=== PATIENT | female | born 1935 | race Caucasian/White ===

== ENCOUNTER 2017-10-24 09:54 | Inpatient (IN) ==
[2017-10-24] MEDS ORDERED: KETOROLAC 30 MG/1 ML VIAL IV STA (10:11)
[2017-10-24 11:36] LABS: Basophils % 0.6 % (0.0-0.8); Eosinophils # 0.2 10*3/uL (0.0-0.87); Eosinophils % 3.8 % (0.00-10.9); Hematocrit 34.8 VOL% (35.7-47.0); Hemoglobin 11.5 GM/DL (12.0-16.0); Immature Granulocytes % 0.2 %; Immature Granulocytes Absolute 0.01 #; Lymphocytes # 0.7 10*3/uL (1.4-4.0); Lymphocytes % 13.8 % (21.3-54.2); Mean Corpuscular Hemoglobin 29 PG (27-34); Mean Corpuscular Volume 86.6 FL (87-102); Mean Platelet Volume 9.6 FL (9.6-12.0); Monocytes # 0.6 10*3/uL (0.11-0.8); Monocytes % 11.7 % (1.7-12.7); Neutrophils # 3.3 10*3/uL (1.4-7.4); Neutrophils % 69.9 % (38.7-73.9); Platelet Count 140 T/CUMM (130-400); Red Blood Count 4.02 MC/CUMM (3.8-5.5); Red Cell Distribution Width 12.5 % (9.3-17.3); White Blood Count 4.7 T/CUMM (4-12)
[2017-10-24] MEDS ORDERED: KETOROLAC 30 MG/1 ML VIAL ONE (11:37)
[2017-10-24 11:46] LABS: PT Patient Result 10.9 SECS
[2017-10-24 11:56] LABS: Apearance,Urine CLEAR (Clear); Bilirubin,Urine Negative (Negative); Blood, Urine Negative (Negative); Glucose,Urine (UA) Negative (Negative); Ketones,Urine Negative (Negative); Mucus,Urine Occasional /LPF (Occasional); Nitrite,Urine Negative (Negative); Protein,Urine Negative; RBC,Urine <1 /HPF (0-4); Squamous Epithelial Cell,Urine Occasional /HPF (0-10); Urine Color Yellow (Yellow); Urine Specific Gravity 1.009 (1.001-1.035); Urine Urobilinogen < 2.0 EU/DL (0.2-1.0); WBC,Urine <1 /HPF (0-6)
[2017-10-24 12:16] LABS: Alanine Aminotransferase 24 U/L (13-56); Albumin 4.1 G/DL (3.4-5.0); Alkaline Phosphatase 93 U/L (45-117); Aspartate Amino Transferase 21 U/L (0-37); Bilirubin,Total < 0.39 MG/DL (0.2-1.0); Blood Urea Nitrogen 42 MG/DL (7-18); Glucose 100 MG/DL (74-106); Magnesium 2.5 MG/DL (1.8-2.4); Osmolality,Calculated 293.1 MOS/KG (273-304); Potassium 3.4 MMOL/L (3.5-5.1); Sodium 142 MMOL/L (136-145); Total Protein 6.9 G/DL (6.4-8.3); Troponin I Only < 0.015 NG/ML (0.00-0.045)
[2017-10-24] MEDS ORDERED: ONDANSETRON 4 MG/2 ML VIAL IV PRN (13:46)
[2017-10-24] MEDS ORDERED: ACETAMINOPHEN 325 MG TABLET PO PRN (13:46)
[2017-10-24] MEDS: SODIUM CHLOR 0.45% KCL 20 MEQ 20 MEQ/1,000 ML BAG IV SCH (16:04)
[2017-10-25 05:54] LABS: Basophils % 0.8 % (0.0-0.8); Eosinophils # 0.2 10*3/uL (0.0-0.87); Eosinophils % 8.4 % (0.00-10.9); Hematocrit 26.4 VOL% (35.7-47.0); Hemoglobin 8.8 GM/DL (12.0-16.0); Lymphocytes # 0.6 10*3/uL (1.4-4.0); Mean Corpuscular HGB Conc 33.3 GM/DL (32-36); Mean Corpuscular Hemoglobin 29 PG (27-34); Mean Corpuscular Volume 87.1 FL (87-102); Mean Platelet Volume 10.3 FL (9.6-12.0); Monocytes # 0.4 10*3/uL (0.11-0.8); Monocytes % 15.2 % (1.7-12.7); Neutrophils # 1.3 10*3/uL (1.4-7.4); Neutrophils % 51.6 % (38.7-73.9); Platelet Count 141 T/CUMM (130-400); Red Blood Count 3.03 MC/CUMM (3.8-5.5); Red Cell Distribution Width 12.6 % (9.3-17.3); White Blood Count 2.5 T/CUMM (4-12)
[2017-10-25 06:12] LABS: Albumin 3.1 G/DL (3.4-5.0); Bilirubin,Total 0.5 MG/DL (0.2-1.0); Calcium 8.8 MG/DL (8.5-10.1); Osmolality,Calculated 283.5 MOS/KG (273-304); Total Protein 5.1 G/DL (6.4-8.3)
[2017-10-25 06:25] LABS: Giant Platelets Few; Hypochromasia 1+; Ovalocytes Slight; Platelet Estimate Normal
[2017-10-25] MEDS: PANTOPRAZOLE 40 MG TABLET PO SCH (09:18)
[2017-10-25] MEDS ORDERED: TEMAZEPAM 15 MG CAPSULE PO PRN (20:50)
[2017-10-25] MEDS ORDERED: clonazePAM 0.5 MG TABLET PO SCH (21:00)
[2017-10-25] MEDS ORDERED: SIMVASTATIN 40 MG TABLET PO SCH (21:00)
[2017-10-26] MEDS: SODIUM CHLOR 0.45% KCL 20 MEQ 20 MEQ/1,000 ML BAG IV SCH (02:00)
[2017-10-26] MEDS: PANTOPRAZOLE 40 MG TABLET PO SCH (08:46)
[2017-10-26 12:00] VITALS: BP 158/70
== END 2017-10-26 12:10 | disposition home or self-care (01) | DRG 312 ==
LOC: EDBD → EDUNIT# → N.ED 09:54 → N.EDINP 12:51 → SUATTDRO 12:51 → N.EDINP 13:51 → N.2E 14:22
PROVIDERS: ADMIT Hospitalist; ATTEND Internal Medicine

== ENCOUNTER 2018-11-12 13:37 | Inpatient (IN) ==
[2018-11-12] MEDS ORDERED: LEVOFLOXACIN INJ 750 MG in PREMIX 1 EACH IV SCH (16:00)
[2018-11-12 16:17] LABS: Apearance,Urine CLEAR (Clear); Bilirubin,Urine Negative (Negative); Blood, Urine Small mg/dL (Negative); Glucose,Urine (UA) Negative (Negative); Hyaline Casts,Urine 1 /LPF (0-3); Ketones,Urine Negative (Negative); Mucus,Urine Occasional /LPF (Occasional); Nitrite,Urine Negative (Negative); Protein,Urine Negative; RBC,Urine 11 /HPF (0-4); Urine Color Colorless (Yellow); Urine Specific Gravity 1.008 (1.001-1.035); Urine Urobilinogen < 2.0 EU/DL (0.2-1.0); WBC,Urine 1 /HPF (0-6)
[2018-11-12 16:23] LABS: Basophils % 0.5 % (0.0-0.8); Eosinophils # 0.2 10*3/uL (0.0-0.87); Eosinophils % 8.1 % (0.00-10.9); Hematocrit 30.3 VOL% (35.7-47.0); Hemoglobin 9.6 GM/DL (12.0-16.0); Immature Granulocytes % 0.5 %; Immature Granulocytes Absolute 0.01 #; Lymphocytes # 0.4 10*3/uL (1.4-4.0); Lymphocytes % 20.3 % (21.3-54.2); Mean Corpuscular HGB Conc 31.7 GM/DL (32-36); Mean Corpuscular Hemoglobin 28 PG (27-34); Mean Corpuscular Volume 86.8 FL (87-102); Mean Platelet Volume 9.4 FL (9.6-12.0); Monocytes # 0.2 10*3/uL (0.11-0.8); Monocytes % 12.2 % (1.7-12.7); Neutrophils # 1.2 10*3/uL (1.4-7.4); Neutrophils % 58.4 % (38.7-73.9); Platelet Count 136 T/CUMM (130-400); Red Blood Count 3.49 MC/CUMM (3.8-5.5); Red Cell Distribution Width 13.9 % (9.3-17.3)
[2018-11-12 16:27] LABS: Alanine Aminotransferase 18 U/L (13-56); Albumin 2.5 G/DL (3.4-5.0); Alkaline Phosphatase 77 U/L (45-117); Aspartate Amino Transferase 33 U/L (0-37); Bilirubin,Total < 0.39 MG/DL (0.2-1.0); Blood Urea Nitrogen 28 MG/DL (7-18); Calcium 8.7 MG/DL (8.5-10.1); Glucose 94 MG/DL (74-106); Osmolality,Calculated 280.7 MOS/KG (273-304); Potassium 3.7 MMOL/L (3.5-5.1); Sodium 138 MMOL/L (136-145); Total Protein 6.1 G/DL (6.4-8.3)
[2018-11-12 17:09] LABS: Eosinophils 7 % (0-10); Lymphocytes 17 % (20-55); Reactive Lymphocytes Few; Segmented Neutrophils 59 % (50-85); Total Cells Counted 100
[2018-11-12 17:10] LABS: Hypochromasia Slight; Platelet Estimate Adequate
[2018-11-12] MEDS: ALBUTEROL/IPRATROPIUM 3 ML NEB RESP TX SCH (19:03)
[2018-11-12] MEDS: clonazePAM 0.5 MG TABLET PO SCH (20:31)
[2018-11-12] MEDS: TEMAZEPAM 15 MG CAPSULE PO PRN (20:31)
[2018-11-12] MEDS: SIMVASTATIN 40 MG TABLET PO SCH (20:31)
[2018-11-12] MEDS: SODIUM CHLORIDE 0.9% 1,000 ML IV SCH (23:25)
[2018-11-12] MEDS: LORazepam 2 MG/1 ML VIAL IV PRN (23:42)
[2018-11-13] MEDS: ALBUTEROL/IPRATROPIUM 3 ML NEB RESP TX SCH ×4 (00:18→19:19)
[2018-11-13] MEDS: ACETAMINOPHEN 325 MG TABLET PO PRN (03:38)
[2018-11-13] MEDS: ONDANSETRON 4 MG/2 ML VIAL IV PRN (03:40)
[2018-11-13 04:11] LABS: Eosinophils # 0.2 10*3/uL (0.0-0.87); Eosinophils % 10.8 % (0.00-10.9); Hematocrit 27.3 VOL% (35.7-47.0); Hemoglobin 8.5 GM/DL (12.0-16.0); Immature Granulocytes % 0.5 %; Immature Granulocytes Absolute 0.01 #; Lymphocytes # 0.5 10*3/uL (1.4-4.0); Mean Corpuscular HGB Conc 31.1 GM/DL (32-36); Mean Corpuscular Hemoglobin 27 PG (27-34); Mean Corpuscular Volume 86.7 FL (87-102); Mean Platelet Volume 9.8 FL (9.6-12.0); Monocytes # 0.3 10*3/uL (0.11-0.8); Monocytes % 12.7 % (1.7-12.7); Platelet Count 153 T/CUMM (130-400); Red Blood Count 3.15 MC/CUMM (3.8-5.5)
[2018-11-13 04:23] LABS: Calcium 8.6 MG/DL (8.5-10.1); Osmolality,Calculated 281.5 MOS/KG (273-304); Potassium 3.8 MMOL/L (3.5-5.1)
[2018-11-13 04:27] LABS: Albumin 2.5 G/DL (3.4-5.0); Bilirubin,Total 0.5 MG/DL (0.2-1.0); Calcium 8.9 MG/DL (8.5-10.1); Osmolality,Calculated 278.7 MOS/KG (273-304); Potassium 3.8 MMOL/L (3.5-5.1); Risk Ratio 3.35; Total Protein 5.8 G/DL (6.4-8.3); VLDL CHOLESTEROL 24.8 MG/DL
[2018-11-13 07:01] LABS: Hypochromasia Slight; Platelet Estimate Normal
[2018-11-13 07:02] LABS: Ovalocytes 1+
[2018-11-13] MEDS ORDERED: LINACLOTIDE 145 MCG CAPSULE PO SCH (07:30)
[2018-11-13] MEDS: ASPIRIN EC 81 MG TABLET PO SCH (08:17)
[2018-11-13] MEDS: amLODIPine 5 MG TABLET PO SCH (08:17)
[2018-11-13] MEDS: VENLAFAXINE XR 75 MG CAPSULE PO SCH (08:17)
[2018-11-13] MEDS: clonazePAM 0.5 MG TABLET PO SCH ×2 (08:17→21:15)
[2018-11-13] MEDS: PANTOPRAZOLE 40 MG TABLET PO SCH (08:17)
[2018-11-13] MEDS: TOLTERODINE LA 4 MG CAPSULE PO SCH (08:17)
[2018-11-13] MEDS: MEROPENEM 1,000 MG in SODIUM CHLORIDE 0.9% 100 ML IV SCH ×2 (09:55→21:15)
[2018-11-13] MEDS: VANCOMYCIN INJ 1,000 MG in SODIUM CHLORIDE 0.9% 250 ML IV SCH (10:50)
[2018-11-13] MEDS: SODIUM CHLORIDE 0.9% 1,000 ML IV SCH (18:29)
[2018-11-13] MEDS: SIMVASTATIN 40 MG TABLET PO SCH (21:15)
[2018-11-13] MEDS: TEMAZEPAM 15 MG CAPSULE PO PRN (21:15)
[2018-11-14] MEDS: SODIUM CHLORIDE 0.9% 1,000 ML IV SCH ×2 (00:38→07:51)
[2018-11-14] MEDS: ALBUTEROL/IPRATROPIUM 3 ML NEB RESP TX SCH ×5 (00:41→19:15)
[2018-11-14 04:37] LABS: Basophils % 0.4 % (0.0-0.8); Eosinophils # 0.3 10*3/uL (0.0-0.87); Eosinophils % 11.7 % (0.00-10.9); Hematocrit 27.9 VOL% (35.7-47.0); Hemoglobin 8.4 GM/DL (12.0-16.0); Immature Granulocytes % 0.8 %; Immature Granulocytes Absolute 0.02 #; Lymphocytes # 0.5 10*3/uL (1.4-4.0); Lymphocytes % 19.6 % (21.3-54.2); Mean Corpuscular HGB Conc 30.1 GM/DL (32-36); Mean Corpuscular Hemoglobin 27 PG (27-34); Mean Corpuscular Volume 90.3 FL (87-102); Mean Platelet Volume 9.6 FL (9.6-12.0); Monocytes # 0.3 10*3/uL (0.11-0.8); Monocytes % 11.7 % (1.7-12.7); Neutrophils # 1.3 10*3/uL (1.4-7.4); Neutrophils % 55.8 % (38.7-73.9); Platelet Count 154 T/CUMM (130-400); Red Blood Count 3.09 MC/CUMM (3.8-5.5); Red Cell Distribution Width 14.3 % (9.3-17.3); White Blood Count 2.4 T/CUMM (4-12)
[2018-11-14 04:55] LABS: Alanine Aminotransferase 18 U/L (13-56); Albumin 2.4 G/DL (3.4-5.0); Alkaline Phosphatase 71 U/L (45-117); Aspartate Amino Transferase 27 U/L (0-37); Bilirubin,Total < 0.39 MG/DL (0.2-1.0); Blood Urea Nitrogen 28 MG/DL (7-18); Calcium 8.8 MG/DL (8.5-10.1); Glucose 98 MG/DL (74-106); Potassium 4.1 MMOL/L (3.5-5.1); Sodium 143 MMOL/L (136-145); Total Protein 5.6 G/DL (6.4-8.3)
[2018-11-14 06:14] LABS: Band Neutrophils 3 % (0-10); Eosinophils 18 % (0-10); Lymphocytes 14 % (20-55); Myelocytes 1 %; Segmented Neutrophils 53 % (50-85); Total Cells Counted 100
[2018-11-14 06:15] LABS: Anisocytosis 1+; Hypochromasia 1+; Platelet Estimate Adequate
[2018-11-14] MEDS: amLODIPine 5 MG TABLET PO SCH (08:07)
[2018-11-14] MEDS: TOLTERODINE LA 4 MG CAPSULE PO SCH (08:07)
[2018-11-14] MEDS: clonazePAM 0.5 MG TABLET PO SCH ×2 (08:07→20:36)
[2018-11-14] MEDS: VENLAFAXINE XR 75 MG CAPSULE PO SCH (08:07)
[2018-11-14] MEDS: LINACLOTIDE 145 MCG CAPSULE PO SCH (08:07)
[2018-11-14] MEDS: PANTOPRAZOLE 40 MG TABLET PO SCH (08:07)
[2018-11-14] MEDS: LEVOFLOXACIN INJ 750 MG in PREMIX 1 EACH IV SCH (08:08)
[2018-11-14] MEDS: ASPIRIN EC 81 MG TABLET PO SCH (08:08)
[2018-11-14] MEDS ORDERED: hydrOXYzine HCL 25 MG TABLET PO PRN (09:07)
[2018-11-14] MEDS ORDERED: BISACODYL 5 MG TABLET PO ONE (09:10)
[2018-11-14] MEDS: MEROPENEM 1,000 MG in SODIUM CHLORIDE 0.9% 100 ML IV SCH (09:14)
[2018-11-14] MEDS ORDERED: FUROSEMIDE 40 MG/4 ML VIAL IV ONE (09:30)
[2018-11-14] MEDS ORDERED: ENOXAPARIN 80 MG/0.8 ML SYRINGE SUBCUT SCH (09:30)
[2018-11-14] MEDS ORDERED: ALBUTEROL/IPRATROPIUM 3 ML NEB RESP TX PRN (14:31)
[2018-11-14] MEDS: MONTELUKAST 10 MG TABLET PO SCH (14:59)
[2018-11-14] MEDS: methylPREDNISolone SOD SUC 40 MG/1 ML VIAL IV SCH (15:00)
[2018-11-14 16:00] LABS: Free T4 (Free Thyroxine) 0.93 NG/DL (0.76-1.46); Thyroid Stimulating Hormone 2.41 uIU/ml (0.358-3.74)
[2018-11-14] MEDS ORDERED: ENOXAPARIN 30 MG/0.3 ML SYRINGE SUBCUT SCH (17:04)
[2018-11-14] MEDS: metroNIDAZOLE INJ 500 MG in PREMIX 1 EACH IV SCH (17:33)
[2018-11-14] MEDS: SIMVASTATIN 40 MG TABLET PO SCH (20:36)
[2018-11-14] MEDS: FUROSEMIDE 40 MG/4 ML VIAL IV SCH (20:37)
[2018-11-14] MEDS: VANCOMYCIN INJ 1,000 MG in SODIUM CHLORIDE 0.9% 250 ML IV SCH (22:51)
[2018-11-15] MEDS: methylPREDNISolone SOD SUC 40 MG/1 ML VIAL IV SCH ×2 (02:13→15:39)
[2018-11-15] MEDS: metroNIDAZOLE INJ 500 MG in PREMIX 1 EACH IV SCH ×3 (02:15→18:10)
[2018-11-15 04:49] LABS: Hemoglobin 8.4 GM/DL (12.0-16.0); Immature Granulocytes % 1.6 %; Immature Granulocytes Absolute 0.03 #; Lymphocytes # 0.2 10*3/uL (1.4-4.0); Lymphocytes % 8.6 % (21.3-54.2); Mean Corpuscular HGB Conc 31.1 GM/DL (32-36); Mean Corpuscular Hemoglobin 27 PG (27-34); Mean Corpuscular Volume 87.1 FL (87-102); Mean Platelet Volume 9.5 FL (9.6-12.0); Monocytes # 0.1 10*3/uL (0.11-0.8); Monocytes % 2.7 % (1.7-12.7); Neutrophils # 1.6 10*3/uL (1.4-7.4); Neutrophils % 87.1 % (38.7-73.9); Platelet Count 176 T/CUMM (130-400); Red Cell Distribution Width 14.1 % (9.3-17.3); White Blood Count 1.9 T/CUMM (4-12)
[2018-11-15 05:06] LABS: Osmolality,Calculated 288.3 MOS/KG (273-304); Potassium 3.8 MMOL/L (3.5-5.1)
[2018-11-15 05:10] LABS: Albumin 2.5 G/DL (3.4-5.0); Bilirubin,Total 0.6 MG/DL (0.2-1.0); Calcium 9.1 MG/DL (8.5-10.1); Osmolality,Calculated 290.1 MOS/KG (273-304); Potassium 3.8 MMOL/L (3.5-5.1)
[2018-11-15 06:02] LABS: Hypochromasia 1+; Lymphocytes 7 % (20-55); Microcytosis 1+; Ovalocytes Slight; Segmented Neutrophils 91 % (50-85); Total Cells Counted 100
[2018-11-15] MEDS: FUROSEMIDE 40 MG/4 ML VIAL IV SCH ×2 (07:45→15:40)
[2018-11-15] MEDS: LINACLOTIDE 145 MCG CAPSULE PO SCH (07:45)
[2018-11-15] MEDS: ALBUTEROL/IPRATROPIUM 3 ML NEB RESP TX SCH ×4 (08:31→19:11)
[2018-11-15] MEDS: clonazePAM 0.5 MG TABLET PO SCH ×2 (09:40→20:40)
[2018-11-15] MEDS: VENLAFAXINE XR 75 MG CAPSULE PO SCH (09:41)
[2018-11-15] MEDS: ENOXAPARIN 30 MG/0.3 ML SYRINGE SUBCUT SCH (09:41)
[2018-11-15] MEDS: ASPIRIN EC 81 MG TABLET PO SCH (09:41)
[2018-11-15] MEDS: PANTOPRAZOLE 40 MG TABLET PO SCH (09:41)
[2018-11-15] MEDS: MONTELUKAST 10 MG TABLET PO SCH (09:41)
[2018-11-15] MEDS: TOLTERODINE LA 4 MG CAPSULE PO SCH (09:41)
[2018-11-15] MEDS: LORazepam 2 MG/1 ML VIAL IV PRN (16:00)
[2018-11-15] MEDS: SIMVASTATIN 40 MG TABLET PO SCH (20:40)
[2018-11-16] MEDS: methylPREDNISolone SOD SUC 40 MG/1 ML VIAL IV SCH ×2 (02:10→15:26)
[2018-11-16] MEDS: metroNIDAZOLE INJ 500 MG in PREMIX 1 EACH IV SCH ×3 (02:12→17:23)
[2018-11-16] MEDS: ALBUTEROL/IPRATROPIUM 3 ML NEB RESP TX SCH ×4 (06:59→20:18)
[2018-11-16 08:05] LABS: Hemoglobin 8.5 GM/DL (12.0-16.0); Immature Granulocytes % 1.5 %; Immature Granulocytes Absolute 0.07 #; Lymphocytes # 0.3 10*3/uL (1.4-4.0); Lymphocytes % 5.3 % (21.3-54.2); Mean Corpuscular HGB Conc 31.5 GM/DL (32-36); Mean Corpuscular Hemoglobin 27 PG (27-34); Mean Corpuscular Volume 85.4 FL (87-102); Mean Platelet Volume 9.5 FL (9.6-12.0); Monocytes # 0.2 10*3/uL (0.11-0.8); Monocytes % 3.6 % (1.7-12.7); Neutrophils # 4.2 10*3/uL (1.4-7.4); Neutrophils % 89.6 % (38.7-73.9); Platelet Count 235 T/CUMM (130-400); Red Blood Count 3.16 MC/CUMM (3.8-5.5); White Blood Count 4.7 T/CUMM (4-12)
[2018-11-16] MEDS: MONTELUKAST 10 MG TABLET PO SCH (08:21)
[2018-11-16] MEDS: PANTOPRAZOLE 40 MG TABLET PO SCH (08:21)
[2018-11-16] MEDS: LINACLOTIDE 145 MCG CAPSULE PO SCH (08:21)
[2018-11-16] MEDS: clonazePAM 0.5 MG TABLET PO SCH ×2 (08:21→21:47)
[2018-11-16] MEDS: ASPIRIN EC 81 MG TABLET PO SCH (08:21)
[2018-11-16] MEDS: VENLAFAXINE XR 75 MG CAPSULE PO SCH (08:21)
[2018-11-16] MEDS: FUROSEMIDE 40 MG/4 ML VIAL IV SCH (08:22)
[2018-11-16] MEDS: TOLTERODINE LA 4 MG CAPSULE PO SCH (08:22)
[2018-11-16 08:32] LABS: Calcium 9.5 MG/DL (8.5-10.1); Osmolality,Calculated 292.3 MOS/KG (273-304); Potassium 3.6 MMOL/L (3.5-5.1)
[2018-11-16] MEDS ORDERED: MAGNESIUM CITRATE 300 ML BOTTLE PO ONE (09:00)
[2018-11-16] MEDS: LEVOFLOXACIN INJ 750 MG in PREMIX 1 EACH IV SCH (10:03)
[2018-11-16] MEDS: ENOXAPARIN 30 MG/0.3 ML SYRINGE SUBCUT SCH (10:05)
[2018-11-16] MEDS: VANCOMYCIN INJ 1,000 MG in SODIUM CHLORIDE 0.9% 250 ML IV SCH (12:45)
[2018-11-16] MEDS: ONDANSETRON 4 MG/2 ML VIAL IV PRN (17:22)
[2018-11-16] MEDS: SIMVASTATIN 40 MG TABLET PO SCH (21:47)
[2018-11-17] MEDS: metroNIDAZOLE INJ 500 MG in PREMIX 1 EACH IV SCH (02:45)
[2018-11-17] MEDS: methylPREDNISolone SOD SUC 40 MG/1 ML VIAL IV SCH ×2 (02:48→15:50)
[2018-11-17 05:02] LABS: Basophils % 0.2 % (0.0-0.8); Hematocrit 26.2 VOL% (35.7-47.0); Hemoglobin 8.3 GM/DL (12.0-16.0); Immature Granulocytes % 3.1 %; Immature Granulocytes Absolute 0.16 #; Lymphocytes # 0.3 10*3/uL (1.4-4.0); Lymphocytes % 5.5 % (21.3-54.2); Mean Corpuscular HGB Conc 31.7 GM/DL (32-36); Mean Corpuscular Hemoglobin 27 PG (27-34); Mean Corpuscular Volume 85.6 FL (87-102); Mean Platelet Volume 9.7 FL (9.6-12.0); Monocytes # 0.3 10*3/uL (0.11-0.8); Monocytes % 5.9 % (1.7-12.7); Neutrophils # 4.3 10*3/uL (1.4-7.4); Neutrophils % 85.3 % (38.7-73.9); Platelet Count 276 T/CUMM (130-400); Red Blood Count 3.06 MC/CUMM (3.8-5.5); White Blood Count 5.1 T/CUMM (4-12)
[2018-11-17 05:23] LABS: Calcium 9.3 MG/DL (8.5-10.1); Osmolality,Calculated 297.1 MOS/KG (273-304); Potassium 3.5 MMOL/L (3.5-5.1)
[2018-11-17] MEDS: ALBUTEROL/IPRATROPIUM 3 ML NEB RESP TX SCH ×4 (07:22→19:29)
[2018-11-17] MEDS: LINACLOTIDE 145 MCG CAPSULE PO SCH (08:20)
[2018-11-17] MEDS ORDERED: FUROSEMIDE 40 MG/4 ML VIAL IV SCH (09:00)
[2018-11-17] MEDS: ENOXAPARIN 30 MG/0.3 ML SYRINGE SUBCUT SCH (09:34)
[2018-11-17] MEDS: MONTELUKAST 10 MG TABLET PO SCH (09:36)
[2018-11-17] MEDS: VENLAFAXINE XR 75 MG CAPSULE PO SCH (09:36)
[2018-11-17] MEDS: PANTOPRAZOLE 40 MG TABLET PO SCH (09:37)
[2018-11-17] MEDS: ASPIRIN EC 81 MG TABLET PO SCH (09:37)
[2018-11-17] MEDS: TOLTERODINE LA 4 MG CAPSULE PO SCH (09:37)
[2018-11-17] MEDS: clonazePAM 0.5 MG TABLET PO SCH ×2 (09:37→20:37)
[2018-11-17] MEDS: DOCUSATE/SENNA 50-8.6 MG TABLET PO SCH (12:10)
[2018-11-17] MEDS: SIMVASTATIN 40 MG TABLET PO SCH (20:37)
[2018-11-18 05:00] LABS: Hematocrit 27.9 VOL% (35.7-47.0); Hemoglobin 8.7 GM/DL (12.0-16.0); Immature Granulocytes % 6.1 %; Immature Granulocytes Absolute 0.31 #; Lymphocytes # 0.3 10*3/uL (1.4-4.0); Lymphocytes % 5.7 % (21.3-54.2); Mean Corpuscular HGB Conc 31.2 GM/DL (32-36); Mean Corpuscular Hemoglobin 27 PG (27-34); Mean Corpuscular Volume 85.6 FL (87-102); Mean Platelet Volume 9.7 FL (9.6-12.0); Monocytes # 0.5 10*3/uL (0.11-0.8); Monocytes % 8.9 % (1.7-12.7); Neutrophils % 79.3 % (38.7-73.9); Platelet Count 312 T/CUMM (130-400); Red Blood Count 3.26 MC/CUMM (3.8-5.5); Red Cell Distribution Width 14.2 % (9.3-17.3); White Blood Count 5.1 T/CUMM (4-12)
[2018-11-18 05:39] LABS: Calcium 9.5 MG/DL (8.5-10.1); Osmolality,Calculated 296.1 MOS/KG (273-304); Potassium 3.6 MMOL/L (3.5-5.1)
[2018-11-18 05:46] LABS: Lymphocytes 4 % (20-55); Platelet Estimate Normal; Segmented Neutrophils 93 % (50-85); Total Cells Counted 100
[2018-11-18 05:47] LABS: Polychromasia Few
[2018-11-18] MEDS: methylPREDNISolone SOD SUC 40 MG/1 ML VIAL IV SCH ×2 (06:25→17:39)
[2018-11-18] MEDS: ALBUTEROL/IPRATROPIUM 3 ML NEB RESP TX SCH ×4 (07:39→19:40)
[2018-11-18] MEDS: ASPIRIN EC 81 MG TABLET PO SCH (08:11)
[2018-11-18] MEDS: MONTELUKAST 10 MG TABLET PO SCH (08:11)
[2018-11-18] MEDS: LINACLOTIDE 145 MCG CAPSULE PO SCH (08:11)
[2018-11-18] MEDS: TOLTERODINE LA 4 MG CAPSULE PO SCH (08:11)
[2018-11-18] MEDS: VENLAFAXINE XR 75 MG CAPSULE PO SCH (08:11)
[2018-11-18] MEDS: DOCUSATE/SENNA 50-8.6 MG TABLET PO SCH (08:11)
[2018-11-18] MEDS: clonazePAM 0.5 MG TABLET PO SCH ×2 (08:11→21:13)
[2018-11-18] MEDS: PANTOPRAZOLE 40 MG TABLET PO SCH (08:11)
[2018-11-18] MEDS: LEVOFLOXACIN 750 MG TABLET PO SCH (08:12)
[2018-11-18] MEDS: ENOXAPARIN 30 MG/0.3 ML SYRINGE SUBCUT SCH ×2 (08:12→09:52)
[2018-11-18] MEDS ORDERED: TUBERCULIN SKIN TEST 0.1 ML SYRINGE INTRADERM ONE (09:14)
[2018-11-18] MEDS: ACETAMINOPHEN 325 MG TABLET PO PRN (10:48)
[2018-11-18] MEDS: DORNASE ALFA 2.5 MG/2.5 ML VIAL RESP TX SCH (19:48)
[2018-11-18] MEDS: SIMVASTATIN 40 MG TABLET PO SCH (21:13)
[2018-11-18] MEDS: TEMAZEPAM 15 MG CAPSULE PO PRN (21:13)
[2018-11-19] MEDS: methylPREDNISolone SOD SUC 40 MG/1 ML VIAL IV SCH ×2 (04:51→17:54)
[2018-11-19 06:52] LABS: Basophils % 0.2 % (0.0-0.8); Hemoglobin 9.5 GM/DL (12.0-16.0); Immature Granulocytes % 9.2 %; Immature Granulocytes Absolute 0.44 #; Lymphocytes # 0.3 10*3/uL (1.4-4.0); Lymphocytes % 5.9 % (21.3-54.2); Mean Corpuscular HGB Conc 31.7 GM/DL (32-36); Mean Corpuscular Hemoglobin 27 PG (27-34); Mean Platelet Volume 9.5 FL (9.6-12.0); Monocytes # 0.4 10*3/uL (0.11-0.8); Neutrophils # 3.7 10*3/uL (1.4-7.4); Neutrophils % 76.7 % (38.7-73.9); Platelet Count 316 T/CUMM (130-400); Red Blood Count 3.49 MC/CUMM (3.8-5.5); Red Cell Distribution Width 14.3 % (9.3-17.3); White Blood Count 4.8 T/CUMM (4-12)
[2018-11-19 06:59] LABS: Calcium 9.3 MG/DL (8.5-10.1); Osmolality,Calculated 293.4 MOS/KG (273-304); Potassium 4.1 MMOL/L (3.5-5.1)
[2018-11-19] MEDS: ALBUTEROL/IPRATROPIUM 3 ML NEB RESP TX SCH ×4 (07:10→19:42)
[2018-11-19] MEDS: DORNASE ALFA 2.5 MG/2.5 ML VIAL RESP TX SCH ×2 (07:15→19:42)
[2018-11-19 07:29] LABS: Band Neutrophils 3 % (0-10); Lymphocytes 4 % (20-55); Metamyelocytes 1 %; Segmented Neutrophils 84 % (50-85); Total Cells Counted 100
[2018-11-19 07:30] LABS: Anisocytosis 1+; Hypochromasia 2+; Macrocytosis 1+; Platelet Estimate Normal
[2018-11-19] MEDS ORDERED: FUROSEMIDE 40 MG/4 ML VIAL IV ONE (07:40)
[2018-11-19] MEDS: ENOXAPARIN 30 MG/0.3 ML SYRINGE SUBCUT SCH (10:10)
[2018-11-19] MEDS: DOCUSATE/SENNA 50-8.6 MG TABLET PO SCH (10:10)
[2018-11-19] MEDS: clonazePAM 0.5 MG TABLET PO SCH ×2 (10:10→20:26)
[2018-11-19] MEDS: TOLTERODINE LA 4 MG CAPSULE PO SCH (10:11)
[2018-11-19] MEDS: ASPIRIN EC 81 MG TABLET PO SCH (10:11)
[2018-11-19] MEDS: MONTELUKAST 10 MG TABLET PO SCH (10:11)
[2018-11-19] MEDS: PANTOPRAZOLE 40 MG TABLET PO SCH (10:11)
[2018-11-19] MEDS: VENLAFAXINE XR 75 MG CAPSULE PO SCH (10:11)
[2018-11-19] MEDS: LINACLOTIDE 145 MCG CAPSULE PO SCH (10:12)
[2018-11-19] MEDS: SIMVASTATIN 40 MG TABLET PO SCH (20:26)
[2018-11-19] MEDS: ACETAMINOPHEN 325 MG TABLET PO PRN (20:47)
[2018-11-20] MEDS: methylPREDNISolone SOD SUC 40 MG/1 ML VIAL IV SCH ×2 (05:50→16:56)
[2018-11-20] MEDS: ALBUTEROL/IPRATROPIUM 3 ML NEB RESP TX SCH ×4 (08:00→19:25)
[2018-11-20] MEDS: DORNASE ALFA 2.5 MG/2.5 ML VIAL RESP TX SCH ×2 (08:06→19:34)
[2018-11-20] MEDS: ENOXAPARIN 30 MG/0.3 ML SYRINGE SUBCUT SCH (10:26)
[2018-11-20] MEDS: VENLAFAXINE XR 75 MG CAPSULE PO SCH (10:51)
[2018-11-20] MEDS: PANTOPRAZOLE 40 MG TABLET PO SCH (10:51)
[2018-11-20] MEDS: LINACLOTIDE 145 MCG CAPSULE PO SCH (10:51)
[2018-11-20] MEDS: TOLTERODINE LA 4 MG CAPSULE PO SCH (10:51)
[2018-11-20] MEDS: ASPIRIN EC 81 MG TABLET PO SCH (10:51)
[2018-11-20] MEDS: MONTELUKAST 10 MG TABLET PO SCH (10:51)
[2018-11-20] MEDS: DOCUSATE/SENNA 50-8.6 MG TABLET PO SCH (10:51)
[2018-11-20] MEDS: LEVOFLOXACIN 750 MG TABLET PO SCH (10:52)
[2018-11-20] MEDS: SIMVASTATIN 40 MG TABLET PO SCH (20:00)
[2018-11-20] MEDS: ACETAMINOPHEN 325 MG TABLET PO PRN (20:11)
[2018-11-20] MEDS: ONDANSETRON 4 MG/2 ML VIAL IV PRN (23:11)
[2018-11-21] MEDS: ACETAMINOPHEN 325 MG TABLET PO PRN ×2 (00:02→04:51)
[2018-11-21] MEDS: methylPREDNISolone SOD SUC 40 MG/1 ML VIAL IV SCH (04:46)
[2018-11-21 05:34] LABS: Basophils % 0.3 % (0.0-0.8); Eosinophils % 0.1 % (0.00-10.9); Hematocrit 30.5 VOL% (35.7-47.0); Hemoglobin 9.2 GM/DL (12.0-16.0); Immature Granulocytes % 9.1 %; Immature Granulocytes Absolute 0.67 #; Lymphocytes # 0.4 10*3/uL (1.4-4.0); Lymphocytes % 5.3 % (21.3-54.2); Mean Corpuscular HGB Conc 30.2 GM/DL (32-36); Mean Corpuscular Hemoglobin 26 PG (27-34); Mean Corpuscular Volume 87.1 FL (87-102); Mean Platelet Volume 9.6 FL (9.6-12.0); Monocytes # 0.8 10*3/uL (0.11-0.8); Neutrophils # 5.5 10*3/uL (1.4-7.4); Neutrophils % 74.2 % (38.7-73.9); Platelet Count 346 T/CUMM (130-400); Red Cell Distribution Width 14.8 % (9.3-17.3); White Blood Count 7.4 T/CUMM (4-12)
[2018-11-21 05:48] LABS: Albumin 2.8 G/DL (3.4-5.0); Bilirubin,Total 0.6 MG/DL (0.2-1.0); Calcium 9.2 MG/DL (8.5-10.1); Osmolality,Calculated 294.3 MOS/KG (273-304); Potassium 4.2 MMOL/L (3.5-5.1); Total Protein 5.8 G/DL (6.4-8.3)
[2018-11-21 06:19] LABS: Hypochromasia 1+; Lymphocytes 13 % (20-55); Microcytosis 1+; Platelet Estimate Normal; Polychromasia Few; Segmented Neutrophils 81 % (50-85); Total Cells Counted 100
[2018-11-21] MEDS ORDERED: methylPREDNISolone SOD SUC 40 MG/1 ML VIAL IV SCH (08:36)
[2018-11-21] MEDS: DORNASE ALFA 2.5 MG/2.5 ML VIAL RESP TX SCH (09:00)
[2018-11-21] MEDS: ALBUTEROL/IPRATROPIUM 3 ML NEB RESP TX SCH ×3 (09:00→12:40)
[2018-11-21] MEDS: LINACLOTIDE 145 MCG CAPSULE PO SCH (09:34)
[2018-11-21] MEDS: VENLAFAXINE XR 75 MG CAPSULE PO SCH (09:37)
[2018-11-21] MEDS: MONTELUKAST 10 MG TABLET PO SCH (09:39)
[2018-11-21] MEDS: TOLTERODINE LA 4 MG CAPSULE PO SCH (09:40)
[2018-11-21] MEDS: DOCUSATE/SENNA 50-8.6 MG TABLET PO SCH (09:41)
[2018-11-21] MEDS: PANTOPRAZOLE 40 MG TABLET PO SCH (09:42)
[2018-11-21] MEDS: ASPIRIN EC 81 MG TABLET PO SCH (09:42)
[2018-11-21] MEDS: ENOXAPARIN 30 MG/0.3 ML SYRINGE SUBCUT SCH (09:43)
[2018-11-21 11:20] VITALS: BP 129/69
== END 2018-11-21 13:46 | disposition swing bed (61) | DRG 177 ==
LOC: SUATTDRO 15:16 → N.CC 15:16 → N.3E 11-16 09:33
PROVIDERS: ADMIT Internal Medicine; ATTEND Internal Medicine